=== PATIENT | male | born 1955 | race Caucasian/White ===

== ENCOUNTER 2016-08-09 21:31 | Emergency (ER) | payer BC ==
--- NOTE | ~2016-08-09 | ER ---
PATIENT'S NAME: MAI HINTON [facility] AGE: 61 Y [address] ROOM: [place], [place] [address] LOCATION: [facility] ADMIT DATE: 08/09/2016 ER/Outpatient Report DISCHARGE DATE: 08/10/2016 FAMILY PHYSICIAN: Rodriguez Wilson MD ATTENDING PHYSICIAN: Ari Sam HISTORY OF PRESENT ILLNESS: This is a 61-year-old male, who presents today with chief complaint of lower abdominal pain. The pain is in the mid lower abdomen. It comes and goes in intensity. Currently, he says it is a 4/10, but when it is really bad, he gets severely at 10/10. He cannot think of any exacerbating or alleviating symptoms. Sometimes he takes Tylenol for it, which seems to help, but he knows the pain is worse today, so that is why he came in. He also reports that he has some nausea without any episodes of vomiting. He has also had a fever T-max or temp where it was like a 101 off and on. Last took Tylenol about 4 hours ago. Although, he has also had some constipation, so he took some MiraLax for this. He had a small bowel movement today. This pain has been ongoing for about 5 days now, but it is just the worse today, so he decided to come in. He is from [place]. He has doctors at [place] as he has a history of pancreatic cancer for which he is getting chemo through his port and last chemo infusion was 2 weeks ago. It was his third treatment, but he is here in [place] for a conference, so that is why he came in today. PAST MEDICAL HISTORY: Includes pancreatic cancer. PAST SURGICAL HISTORY: Right chest port placement. SOCIAL HISTORY: He does not smoke, drink or use any drugs. REVIEW OF SYSTEMS: Reviewed by me and negative with the exception of those discussed in the HPI. PHYSICAL EXAMINATION: VITAL SIGNS: The patient is 6 feet tall, he is 98.6 kilos. Blood pressure is 172/95, heart rate 82, respiratory rate 16, temperature is 98.8, saturations are 97% on room air. GENERAL: The patient looks pretty comfortable. He is lying in stretcher. He is not writhing in pain. He is not actively vomiting or retching. He does not appear thin or cachectic. He is not pale or diaphoretic. NEURO: He is alert and oriented x4. Moves all extremities. HEART: Regular rate and rhythm. LUNGS: His lung sounds are clear. PATIENT'S NAME: MAI HINTON [facility] AGE: 61 Y [address] ROOM: [place] [id number] LOCATION: [facility] ADMIT DATE: 08/09/2016 ER/Outpatient Report DISCHARGE DATE: 08/10/2016 FAMILY PHYSICIAN: Rodriguez Wilson MD ATTENDING PHYSICIAN: Ari Sam ABDOMEN: He has some very very mild tenderness in the mid lower abdomen. He has no tenderness in the epigastric region. No right upper quadrant tenderness. No right lower quadrant tenderness. No left lower quadrant tenderness. No CVA tenderness bilaterally. He has no rebound or guarding. He has no peritoneal signs. He has normoactive bowel sounds. He is not actively vomiting or retching. SKIN: His skin looks normal as well. No erythema. EMERGENCY ROOM COURSE: Given the patient's pretty complicated history includes his pancreatic cancer, we checked some lab work. We gave him 4 of morphine for his pain. As it is sort of flared up, when I was talking to him, it became 10. We checked some lab work. His CBC shows a white count of 4.3, H and H is 10.6/30.9, and platelets are 168. ANC is 2.1 and bandemia 2%. Procalcitonin is 0.1. CMS showed sodium 139, potassium 3.9, chloride 104, CO2 25, anion gap 13.9, glucose is 107, calcium is 8.1, BUN is 13, creatinine is 0.7, bilirubin is 0.8, alkaline phosphatase is 97, AST is 23, ALT is 22, GFR is greater than 60. Lipase is 31. Lactic acid is 0.9. We also checked a urine which showed no leuks or nitrites, 10 rbc's, 15 ketones. In the micro, it did not show any wbc's, 0-2 rbc's, 0-2 epithelial, and rare bacteria. Given his complicated history, we did do a CT abdomen and pelvis for this. It showed 7.9 x 5.8 x 6.8 dominant pancreatic head and neck mass consistent with malignancy and several adjacent low-attenuation masses or collections, some of which may be necrotic lymph nodes. The mass is inseparable from duodenum. 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 He has a common bile duct stent in place with no significant intrahepatic biliary duct dilatation. He has mildly enlarged retroperitoneal lymph nodes. I went over the patient's results with him especially the imaging. The doctors in [place] felt there is no thing for him like the CT to be compared to, so I cannot tell that the mass is worse or better. The patient says that he thinks the last time that he heard it was like 7.2 x 5.6, which is pretty close to what the reading is right now. He also noticed he has pretty significant lymph nodes around that. I did discuss with him. There is no sort of what looks like acute changes like he has no appendicitis, he has no colitis or diverticulitis. No bowel obstruction. The patient says he feels better after the morphine. He feels like he could go home. He wants to follow up with his doctors at [place]. I think that is a good idea as well as his oncologist is there and he will have follow up there. He is planning a drive back tomorrow. He is fine to go back tomorrow, someone else will drive. The patient was given a script for Zofran and Percocet for pain control. I did tell him that if he is going to take that he needs to be vigilant if he takes that with Tylenol as Percocet. He already has Tylenol. He understands this and take the medications appropriately and follow up appropriately. He understands the reasons to come back to the ER sooner. IMPRESSION: PATIENT'S NAME: MAI HINTON [facility] AGE: 61 Y [address] ROOM: [place], [place] [address] LOCATION: [facility] ADMIT DATE: 08/09/2016 ER/Outpatient Report DISCHARGE DATE: 08/10/2016 FAMILY PHYSICIAN: Rodriguez Wilson MD ATTENDING PHYSICIAN: Ari Sam Abdominal pain. ARI SAM MD CAJulio/[email or web address] /[id number] d: 08/10/16 0552 t: 08/12/16 0028, OUTPATIENT REPORT
[2016-08-09 22:12] LABS: HEMATOCRIT 30.9 % (37.0-53.0); HEMOGLOBIN 10.6 g/dL (11.0-16.0); MCH 29.5 pg (27.0-34.0); MCHC 34.3 gm/dL (32.0-36.5); MCV 86.1 fl (83.0-98.0); MPV 11.3 fl (9.4-12.4); PLATELET COUNT 168 K/uL (150-450); RBC 3.59 M/uL (3.50-5.50); RDW-CV 13.6 % (11.9-14.6); WBC 4.3 K/uL (4.0-11.0)
[2016-08-09 22:57] LABS: ALK PHOS 97 IU/L (33-138); ALT 22 IU/L (12-78); ANION GAP 13.9 (10.0-19.0); AST 23 IU/L (10-40); BLOOD UREA NITROGEN 13 mg/dL (6-24); CALCIUM 8.1 mg/dL (8.5-10.5); CHLORIDE 104 mMol/L (96-110); CO2 25 mMol/L (22-32); CREATININE 0.7 mg/dL (0.6-1.3); ESTIMATED GFR (MDRD EQUATION) > 60; POTASSIUM 3.9 mMol/L (3.7-5.1); SODIUM 139 mMol/L (135-145); TOTAL BILIRUBIN 0.8 mg/dL (0.0-1.5)
[2016-08-09 22:58] LABS: ABSOLUTE NEUTROPHIL CT (ANC) 2.1 K/uL (1.4-9.0); BANDED NEUTROPHIL # 0.1 K/uL (0.0-0.1); BANDED NEUTROPHILS % 2 %; LYMPHOCYTE # 1.6 K/uL (0.8-4.0); LYMPHOCYTE % 37 %; MONOCYTE # 0.6 K/uL (0.0-1.0); SEGMENTED NEUTROPHIL % 47 %
[2016-08-09 23:51] LABS: BILIRUBIN URINE NEGATIVE (NEGATIVE); BLOOD URINE 10 /UL (NEGATIVE); COLOR URINE YELLOW (YELLOW); GLUCOSE URINE NEGATIVE (NEGATIVE); KETONE URINE 15 mg/dL (NEGATIVE); LEUKOCYTES URINE NEGATIVE /UL (NEGATIVE); NITRITE URINE NEGATIVE (NEGATIVE); PROTEIN URINE NEGATIVE (NEGATIVE); SPEC GRAVITY URINE 1.005 (1.003-1.035); TURBIDITY URINE CLEAR (CLEAR); UROBILINOGEN URINE NORMAL (NORMAL)
[2016-08-09 23:59] LABS: BACTERIA URINE RARE (NEGATIVE); EPITHELIAL URINE 0-2 #/HPF (NEGATIVE); RBC URINE 0-2 #/HPF (NEGATIVE); WBC URINE NEGATIVE #/HPF (NEGATIVE)
== END 2016-08-10 00:15 | disposition disaster alternative care site (69) ==
LOC: GMED 21:31
PROVIDERS: Emergency Medicine
DX: R10.30 Lower abdominal pain, unspecified (principal); Z85.07 Personal history of malignant neoplasm of pancreas; Z98.890 Other specified postprocedural states; Z79.899 Other long term (current) drug therapy
CPT/HCPCS: J1642; J2270; Q9967